=== PATIENT | female | born 1955 | race African-American/Black ===

== ENCOUNTER 2024-12-11 17:37 | Emergency (ER) | payer MEDICARE, MEDICAID, SELFPAY ==
--- NOTE | ~2024-12-11 | CT_ITS ---
History: Headache and neck pain PROCEDURE: CT cervical spine without intravenous contrast. COMPARISON: None TECHNIQUE: Multiple contiguous axial images of the cervical spine were performed without the administration of i ntravenous contrast. DLP: 507 mGy-cm FINDINGS: Straightening and slight reversal of the normal curvature of the cervical spine is identified, likely muscular in origin. No acute fractures are present. The bilateral lung apices are unremarkable. No soft tissue abnormality is present. The airway is unremarkable. Impression: Straightening and slight reversal of the normal curvature of the cervical spine, likely muscular in o rigin. No acute fracture. Reviewed, dictated and finalized at location A. Impression: Straightening and slight reversal of the normal curvature of the cervical spine , likely muscular in origin. No acute fracture.
--- NOTE | ~2024-12-11 | CT_ITS ---
History: Headache and neck pain PROCEDURE: CT head without contrast. COMPARISON: None TECHNIQUE: Axial imaging of the head performed from the skull base to the vertex without IV contrast. Sagittal a nd coronal reformations obtained. DLP: 681 mGy-cm FINDINGS: The ventricles are normal in size, shape and position. There is no mass, mass effect or midline shift. There is no abnormal extra-axial fluid collection or intracranial hemorrhage. Visualized paranasal sinuses are clear. The mastoid air cells are well aerated. No acute displaced fractures within the overlying cranium. Impression: No acute intracranial hemorrhage or suspicious mass effect. Reviewed, dictated and finalized at location A. Impression: No acute intracranial hemorrhage or suspicious mass effect.
--- OUTSIDE RECORDS SUMMARY | 2024-12-11 17:41 | XMS_ITS | Clinical Summary ---
Author Organization [facility] bookjam Address [address] [place] [address] Care Team Providers Care Tie Fastener Name Role Phone [facility] Primary Care Provider Source Comments [facility] Affiliates and Associated Physician Practices is amultiple site organization consisting of ambulatory clinics and hospital sitesin [place], [place], [place] and [place]. This disclosure is being madepursuant to the Care Everywhere program and may not contain all information available regarding this patient. Last updated 18.[facility] Allergies Active Allergy Reactions Criticality Noted Date Comments Clindamycin Swelling Medium 03/11/2019 Tongue swelling Lisinopril Rash Medium 03/11/2019 Medications * Be aware that medications may not be up to date on this document. Alwaysverify current medications with the patient. Medication Sig Dispensed Refills Start Date End Date Status lidocaine (LIDODERM) 5 % patch Apply 1 patch to skin once daily 6 patch 03/14/2019 Active acetaminophen (Tylenol) 325 MG tablet Take 2 (two) tablets by mouth every 4 hours as needed Maximum allowable Acetaminophen amount = 4 Grams (4000 mg) / 24 hours. 06/07/2022 Active albuterol HFA (Proventil; Ventolin; Proair) 108 (90 Base) MCG/ACT inhaler Inhale 2 (two) puffs by mouth every 4 hours as needed for Shortness of Breath or Wheezing 8 g 2 06/07/2022 Active amLODIPine (Norvasc) 10 MG tablet Take 1 (one) tablet by mouth once daily 30 tablet 2 06/08/2022 Active benzonatate (Tessalon) 100 MG capsule Take 1 (one) capsule by mouth 3 times daily as needed for Cough 100 capsule 06/07/2022 Active famotidine (Pepcid) 20 MG tablet Take 1 (one) tablet by mouth once daily 30 tablet 2 06/07/2022 Active pantoprazole EC (Protonix) 20 MG tablet Take 1 (one) tablet by mouth once daily 30 tablet 06/29/2022 Active hydrOXYzine HCl (Atarax) 25 MG tablet Take 1 (one) tablet by mouth 4 times daily as needed (anxiety) 15 tablet 11/29/2022 Active Active Problems Problem Noted Date Diagnosed Date Elevated troponin 06/07/2022 Chest pain 06/07/2022 Syncope 06/07/2022 Fall 02/04/2022 Resolved Problems Problem Noted Date Diagnosed Date Resolved Date Cough 06/07/2022 07/05/2022 Social History Tobacco Use Types Packs/Day Years Used Date Smoking Tobacco: Former Smokeless Tobacco: Never Alcohol Use Standard Drinks/Week Comments No 0 (1 standard drink = 0.6 oz pur e alcohol) AUDIT-C Answer Date Recorded Q1: How often do you have a drink containing alcohol? Never 02/03/2022 Q2: How many drinks containi ng alcohol do you have on a typical day when you are drinking? Patient does not drink Q3: How often do you have si x or more drinks on one occasion? Never 02/03/2022 Sex and Gender Information Value Date Recorded Sex Assigned at Not on file Gender Identity Not on file Sexual Orientation Not on file Last Filed Vital Signs Vital Sign Reading Time Taken Comments Blood Pressure 162/94 02/26/2023 2:12 AM CDT Pulse 54 02/26/2023 2:12 AM CDT Temperature 36.3 C (97.3 F) 02/25/2023 9:06 PM CDT Respiratory Rate 18 02/26/2023 2:12 AM CDT Oxygen Saturation 100% 02/26/2023 2:12 AM CDT Inhaled Oxygen Concentration 21% 06/29/2022 3 :18 AM CDT Weight 116.1 kg (256 lb) 02/25/2023 9:06 PM CDT Height 160 cm (5' 3) 02/25/2023 9:06 PM CDT Body Mass Index 45.35 02/25/2023 9:06 PM CDT Plan of Treatment Health Maintenance Due Date Last Done Comments BONE DENSITY TESTING 1957 COLOGUARD (AGES 45-75) - COL ON CA SCREENING 1957 COLON MONITORING 1957 COLONOSCOPY - COLON CA SCREENING 1957 CT COLONOGRAPHY - COLON CA SCREENING 1957 Colorectal Cancer Screening 1957 FIT - COLON CA SCREENING 1957 FLEX SIG - COLON CA SCREENING 1957 HEPATITIS C SCREENING 11/21/1975 DTAP/TDAP/TD VACCINES (1 - Tdap) 1976 PNEUMOCOCCAL VACCINE 50+ (1 of 1 - PCV) 11/26/2007 ZOSTER VACCINE (1 of 2) 11/26/2007 Respiratory Syncytial Virus (RSV) Vaccine Pt: or over 60 yrs (1 - Risk 60-74 years 1-dose series) 2017 COVID-19 VACCINE (1 - 2023-2 5 season) 2024 INFLUENZA VACCINE (#1) 2024 MAMMOGRAM 06/16/2024 06/16/2022 DEPRESSION SCREENING 09/24/2024 LIPID TESTING 06/07/2027 06/07/2022, 03/02/2020, 04/17/2018 HEPATITIS B VACCINE Aged Out No longe r eligible based on patient's age to complete this topic HIB VACCINE Aged Out No longer eligi ble based on patient's age to complete this topic HPV VACCINE Aged Out No longer eligi ble based on patient's age to complete this topic MENINGOCOCCAL (Group B) VACCINE SHARED DECISION-MAKING Aged Out No longer eligible based on patient's age to complete this topic MENINGOCOCCAL GROUPS A/C/Y/W VACCINE Aged Out No longer eligible b ased on patient's age to complete this topic Procedures Procedure Name Priority Date/Time Associated Diagnosis Comments LIPID PROFILE STAT 06/07/2022 6:06 AM CDT from Last 3 Months or Most Recently Relevant to Health Maintenance Results * LIPID PROFILE (06/07/2022 6:06 AM CDT) Cholesterol Total 143 <200 mg/dL 06/07/2022 6:33 AM [facility] HDL 49 >40 mg/dL 06/07/2022 6:33 AM [facility] Comment: ATP III Classification of HDL Cholesterol: <40 mg/dL: Considered a major risk factor. >60 mg/dL: Considered a negative risk factor. LDL Calculated 81 <100 mg/dL 06/07/2022 6:33 AM [facility] Comment: ATP III Classification of LDL Cholesterol: <100 mg/dL: Optimal 100 - 129 mg/dL: Near Optimal/Above Optimal 130 - 159 mg/dL: Borderline High 160 - 189 mg/dL: High >190 mg/dL: Very High Triglycerides 63 <150 mg/dL 06/07/2022 6:33 AM [facility] Comment: ATP III Classification of Triglycerides: <150 mg/dL: Normal 150 - 199 mg/dL: Borderline High 200 - 400 mg/dL: High >500 mg/dL: Very High Blood BLOOD SPECIMEN / Unknown Venipuncture / Unknown 06/07/2022 6:06 AM CDT 06/07/2022 6:09 AM T Kamari Adames MD LAB - CHEMISTRY KIM CABRERA [facility] Organization Address City/State/ZIP Co de Phone Number [facility] [address] [place] [address], [facility] [phone] from Last 3 Months or Most Recently Relevant to Health Maintenance Advance Directives * Full Code (Latest Code Status on File) Date Activated Date Inactivated Comments 06/07/2022 5:41 AM 06/07/2022 6:41 PM Care Teams Tie Fastener Relationship Specialty Start Date End Date [facility] [address] [place] [id number] PCP - General 03/11/19
--- OUTSIDE RECORDS SUMMARY | 2024-12-11 17:41 | XMS_ITS | CONTINUITY OF CARE DOCUMENT ---
Author Name ankita luciano Address Unknown Organization [facility] Address [id number] [place] [address] [address] [place] [address] Phone [phone] Care Team Providers Care Student Outreach Coordinator Name Role Phone Donato Doherty MD Unavailable [phone] Donato Doherty MD Unavailable INSURANCE PROVIDERS Payer name Policy type / Coverage type [place] red republican ID [facility] MEDICA[facility] (2) Medicaid [id number]
[2024-12-11 18:34] VITALS: BP 143/75; PULSE 67; RESP 16; O2SAT 100
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
[2024-12-11] MEDS: KETOROLAC 30 MG/ML VIAL (*BKC) IV PUSH (22:48)
[2024-12-11] MEDS: predniSONE 20 MG TABLET 40 MG PO (23:04)
--- OUTSIDE RECORDS SUMMARY | 2024-12-11 23:57 | XMS_ITS | CONTINUITY OF CARE DOCUMENT ---
Author Name ankita luciano Address Unknown Organization [facility] Address [address] [place] [address] [address] [place] [address] Phone [phone] Care Team Providers Care Inspector Conveyor Line Name Role Phone Donato Doherty MD Unavailable [phone] Donato Doherty MD Unavailable INSURANCE PROVIDERS Payer name Policy type / Coverage type [place] red green party ID [facility] MEDICAID (2) Medicaid [id number]
--- OUTSIDE RECORDS SUMMARY | 2024-12-11 23:57 | XMS_ITS | Encounter Summary ---
Author Organization [facility] Address [address] [place] [address] Phone Care Team Providers Care Integrity Manager Name Role Phone Deepa Bowden NP Primary Care Provider [phone] Deepa Bowden NP Primary Care Provider [phone] Deepa Bowden SALES ACCOUNT DIRECTOR Unavailable [phone] Perry Monzon MD Unavailable [phone] Encounter Details Date Type Department Care Team (Latest Contact Info) Description 03/20/2023 Orders Only [facility] Scanning, Provider Social History Tobacco Use Types Packs/Day Years Used Date Smoking Tobacco: Former Cigarettes 0.2 15 1 4 - 1988 Smokeless Tobacco: Never AUDIT-C Answer Date Recorded Q1: How often do you have a drink containing alcohol? Never 11/07/2022 Q2: How many drinks containi ng alcohol do you have on a typical day when you are drinking? Patient does not drink Q3: How often do you have si x or more drinks on one occasion? Never 11/07/2022 Comments No Sex and Gender Information Value Date Recorded Sex Assigned at Not on file Legal Sex Female 1:14 AM FIELD LIABILITY GENERALIST Gender Identity Female 12/11/2023 8:39 PM CDT Sexual Orientation Not on file documented as of this encounter Plan of Treatment Not on file documented as of this encounter Procedures Procedure Name Priority Date/Time Associated Diagnosis Comments PULMONARY - RESULT SCAN 03/20/2023 documented in this encounter Results * PULMONARY - RESULT SCAN (03/20/2023) Anatomical Region Laterality Modality Other us Provider Scanning Final Result documented in this encounter Visit Diagnoses Not on filedocumented in this encounter Additional Health Concerns Infection Onset Date Last Indicated Resolved Time COVID: Recovered 03/20/2023 03/20/2023 06/18/2023 3:05 AM CDT COVID: Suspected 03/20/2023 03/20/2023 03/20/2023 11:11 PM CDT COVID: Suspected 03/20/2023 03/20/2023 03/21/2023 12:21 AM CDT COVID: Suspected 07/22/2023 07/22/2023 07/22/2023 11:24 AM CDT COVID: Suspected 09/25/2023 09/25/2023 09/25/2023 5:29 PM FIELD LIABILITY GENERALIST COVID: Suspected 11/08/2023 11/08/2023 11/08/2023 11:21 AM FIELD LIABILITY GENERALIST COVID: Suspected 12/11/2023 12/11/2023 12/11/2023 9:22 PM CDT COVID: Suspected 12/26/2023 12/26/2023 12/26/2023 6:35 PM CDT COVID: Suspected 01/12/2024 01/12/2024 01/12/2024 11:32 PM CDT COVID: Suspected 01/19/2024 01/19/2024 01/19/2024 4:11 PM CDT COVID: Suspected 06/14/2024 06/14/2024 06/14/2024 4:07 PM CDT COVID: Suspected 06/30/2024 06/30/2024 06/30/2024 3:37 PM CDT documented as of this encounter Care Teams Integrity Manager Relationship Specialty Start Date End Date Deepa Bowden NP PCP - General 05/07/20 12/10/23 Deepa Bowden NP PCP - General Nurse Practitioner 12/11/23 Deepa Bowden NP 12/11/23 Perry Monzon MD [address] [place] [address] [place] [address] Consulting Physician Pulmonary Disease 11/12/23 documented as of this encounter
--- OUTSIDE RECORDS SUMMARY | 2024-12-11 23:57 | XMS_ITS | Encounter Summary ---
Author Organization [facility] Address [address] [place] [address] Care Team Providers Care Roll Grinder Name Role Phone PatiDeepa ruelas DAWIT Primary Care Provider [phone] Encounter Details Date Type Department Care Team (Late st Contact Info) Description 03/03/2020 Hospital Follow-up Call [facility] [place] [address] Rosalva Lopez RN Social History Tobacco Use Types Packs/Day Years Used Date Smoking Tobacco: Former Cigarettes Q uit: 1988 Smokeless Tobacco: Never Alcohol Use Standard Drinks/Week Comments No 0 (1 standard drink = 0.6 oz pur e alcohol) Comments No Sex and Gender Information Value Date Recorded Sex Assigned at Not on file Legal Sex Female 10:12 PM CDT Gender Identity Not on file Sexual Orientation Not on file COVID-19 Exposure Response Date Recorded In the last month, have you been in contact with someone who was confirmed or suspected to have Coronavirus / COVID-19? No / Unsure 03/01/2020 10:17 PM CDT documented as of this encounter Functional Status * RETIRED Are you deaf or do you have serious difficulty hearing Answer Date of Assessment Author Status No 03/02/2020 12:47 PM CDT Acti ve * RETIRED Are you blind or do you have serious difficulty seeing, even when wearing glasses? Answer Date of Assessment Author Status No 03/02/2020 12:47 PM CDT Acti ve * Do you have serious difficulty walking or climbing stairs? Answer Date of Assessment Author Status Yes 03/02/2020 12:47 PM SULTANAT Naima Kunz RN Active * Do you have difficulty dressing or bathing? Answer Date of Assessment Author Status No 03/02/2020 12:47 PM Naima Ramsey RN Active * Because of a physical, mental, or emotional condition, do you have difficulty doing errands alone such as visiting a doctor's office or shopping? Answer Date of Assessment Author Status No 03/02/2020 12:47 PM Naima Ramsey RN Active documented as of this encounter Mental Status * Because of a physical, mental, or emotional condition, do you have serious difficulty concentrating, remembering, or making decisions? Answer Entry Date Author Status No 03/02/2020 12:47 PM Naima Ramsey RN Active documented in this encounter Plan of Treatment Not on file documented as of this encounter Visit Diagnoses Not on filedocumented in this encounter Additional Health Concerns Infection Onset Date Last Indicated Resolved Time COVID-19 Rule Out 02/04/2022 02/04/2022 02/04/2022 8:04 PM CDT COVID-19 Rule Out 04/06/2022 04/06/2022 04/06/2022 8:25 PM CDT COVID-19 Rule Out 05/15/2022 05/15/2022 05/15/2022 9:23 PM CDT COVID-19 Rule Out 06/01/2022 06/01/2022 06/01/2022 6:00 PM CDT COVID-19 Rule Out 02/18/2023 02/18/2023 02/18/2023 10:44 AM CDT COVID-19 Rule Out 03/05/2023 03/05/2023 03/05/2023 1:28 PM CDT COVID-19 Rule Out 03/06/2023 03/06/2023 03/06/2023 12:59 AM CDT COVID-19 Confirmed 03/06/2023 03/06/2023 12:32 AM CDT COVID-19 Rule Out 05/30/2024 05/30/2024 05/30/2024 12:15 PM CDT documented as of this encounter Care Teams Roll Grinder Relationship Specialty Start Date End Date Deepa Bowden NP [address] [place] [phone] PCP - General Nurse Practitioner Family 05/14/19 documented as of this encounter
--- OUTSIDE RECORDS SUMMARY | 2024-12-11 23:57 | XMS_ITS | Referral Summary ---
Author Organization [facility] Address [address] [place] [address] Care Team Providers Care Supervisor Polishing Name Role Phone Deepa Bowden NP Primary Care Provider [phone] Deepa Bowden NP Unavailable [phone] Perry Monzon MD Unavailable [phone] Encounters Date Type Department Care Team Description 11/28/2024 Telephone [facility] ([facility]) - [facility] ENT [address] [place] [address] [address] [place] [address] [place] [address] Irma Wan, 11/24/2024 11:00 AM PERSONNEL RECORDS CLERK Office Visit [facility] Pulmonology [address] [place] [address] [address] [place] [phone] Perry Monzon MD CHARITY (obstructive sleep apnea) (Primary Dx); Cigarette nicotine dependence in remission; Non-seasonal allergic rhinitis due to fungal spores; Disorder of vocal cord; Dyspnea on exertion 11/03/2024 Telephone [facility] Pulmonology [address] [place] [address] [address] [place] [phone] Perry Monzon MD 10/08/2024 9:40 AM PERSONNEL RECORDS CLERK Therapy [facility] Otolaryngology [address] [place] [address] [address]th [place] [address] [place] [address] Nicole Mccullough, DESTINY 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] 09/25/2024 2:30 PM PERSONNEL RECORDS CLERK Office Visit [facility] Pulmonology [address] [facility] [address] [place] [address] Elaine Forbes MD CHARITY (obstructive sleep apnea) (Primary Dx); Psychophysiological insomnia; Cigarette nicotine dependence in remission; Periodic limb movement; Non-seasonal allergic rhinitis due to fungal spores; BMI 50.0-59.9, adult (HCC) from Last 3 Months Allergies Active Allergy Reactions Criticality Noted Date Comments Clindamycin Lisinopril Cough Low 01/05/2023 Medications amLODIPine (NORVASC) 10 mg tablet Take 1 tablet (10 mg total) by mouth daily 04/09/20 18 Active losartan (COZAAR) 100 mg tablet Take 1 tablet (100 mg total) by mouth daily 06/19/20 22 Active hydroCHLOROthi azide (HYDRODIURIL) 12.5 mg tablet Take 1 tablet (12.5 mg total) by mouth daily 12/04/19 24 Active albuterol HFA (PROVENTIL HFA,VENTOLIN HFA,PROAIR HFA) 90 mcg/actuation inhaler Inhale 2 puffs every 4 (four) hours as needed for wheezing or shortness of breath Active fluticasone propionate (FLONASE) 50 mcg/actuation nasal spray Administer 1 spray into each nostril daily Active busPIRone (BUSPAR) 7.5 mg tabletIndicati ons:Generalize d Anxiety Disorder Take 1 tablet (7.5 mg total) by mouth 2 (two) times a day 60 tablet 11 06/17/20 24 025 Active fluticasone propion-salmet Jose Alejandro (ADVAIR DISKUS) 250-50 mcg/dose diskus inhaler Inhale 1 puff 2 (two) times a day Rinse mouth with water after use. Do not swallow. 025 Discontinued predniSONE (DELTASONE) 20 mg tablet Take 2 tablets (40 mg) by mouth daily 09/21/20 025 Discontinued Active Problems Problem Noted Date Diagnosed Date SOB (shortness of breath) 07/01/2024 Hypokalemia 06/30/2024 Anxiety 06/30/2024 Periodic limb movement 06/23/2024 Muscle tension dysphonia 06/15/2024 COPD exacerbation 12/26/2023 Psychophysiological insomnia 11/30/2023 CHARITY (obstructive sleep apnea) 11/30/2023 Snoring 11/30/2023 Cigarette nicotine dependence in remission 11/29 BMI 60.0-69.9, adult 11/30/2023 Uncontrolled hypertension 09/26/2023 Dyspnea on exertion 09/25/2023 Hypertension, essential 03/21/2023 Assessment & Plan (03/21/2023 4:18 PM CDT): Home regimen amlodipine 10, losartan 100 mg. Neither calcium channel blockers nor arms are classic for airway reaction, but consider modification of regimen if no other etiology can be found. -Continue home meds BMI 50.0-59.9, adult 03/21/2023 Assessment & Plan (03/21/2023 2:49 AM CDT): BMI 45 on admission. Anemia 03/21/2023 Assessment & Plan (03/21/2023 2:50 AM CDT): Admission hemoglobin 11.4 from previous normal, but no overt signs of bleeding. Suspect iatrogenic phlebotomy. Consider workup if persistent. Prediabetes 03/21/2023 Assessment & Plan (03/21/2023 4:16 PM CDT): A1C 05/2022 5.8%. Shortness of breath 03/20/2023 Assessment & Plan (03/21/2023 4:18 PM CDT): Sent to ED from allergy clinic. Unclear if reactive airway disease (asthma, but no PFTs), vocal cord dysfunction, tracheobronchomalacia, vascular, other (?autoimmune). S/p steroids, nebs in ED. Multiple ED visits for such. Prior CTPE negative for overt airway disease. Presently, low concern for primary cardiac or lung parenchyma problem. Higher concern for tracheal pathology or reactive airway disease. - ENT consult, s/p scope, appreciate recs Outpatient follow up for hoarseness - Start Zyrtec - Referral to Pulm for possible tracheomalacia. PFTs ordered as outpt - Home today Non-seasonal allergic rhinitis due to fungal spo res 11/07/2022 Non-seasonal allergic rhinitis due to pollen Assessment & Plan (03/21/2023 2:48 AM CDT): - Cont home Flonase, Astelin, Singular - start Zrytec 10mg daily for concern for allergic contribution Asthma 11/07/2022 Postinflammatory hyperpigmentation 08/28/2016 Nontraumatic complete tear of right rotator cuff 07/30/2015 Immunizations Immunization Administration Dates Next Due Tdap 04/28/2016 Social History Tobacco Use Types Packs/Day Years Used Date Smoking Tobacco: Former Cigarettes 0.1 15 1 974 - 1988 Smokeless Tobacco: Never Tobacco Cessation:Counseling Given: Not Answered [facility] Utilities Answer Date Recorded In the past 12 months has [employer], gas, oil, or water [employer] threatened to shut off services in your home? No 07/01/2024 Social Connection and Isolat ion Panel [NHANES] Answer Date Recorded In a typical week, how many times do you talk on the phone with family, friends, or neighbors? More than three times a week 07/01/2024 How often do you get togethe r with friends or relatives? More than three times a week 07/01/2024 How often do you attend chur ch or tenriism services? Never 07/01/2024 Do you belong to any clubs o r organizations such as denominational groups, unions, fraternal or athletic groups, or school groups? No 07/01/2024 How often do you attend meet ings of the clubs or organizations you belong to? Never 07/01/2024 Are you , , di vorced, , never , or living with a partner? 07/01/2024 AUDIT-C Answer Date Recorded Q1: How often do you have a drink containing alcohol? Never 11/08/2023 Q2: How many drinks containi ng alcohol do you have on a typical day when you are drinking? Patient does not drink Q3: How often do you have si x or more drinks on one occasion? Never 11/08/2023 Overall Financial Resource Strain (CARDIA) Answe r Date Recorded How hard is it for you to pa y for the very basics like food, housing, medical care, and heating? Not hard at all 07/01/2024 PHQ-2 Answer Date Recorded PHQ-2 Total Score 0 07/01/2024 Hunger Vital Sign Answer Date Recorded Within the past 12 months, y ou worried that your food would run out before you got the money to buy more. Never true 07/01/20 24 Within the past 12 months, t he food you bought just didn't last and you didn't have money to get more. Never true 07/01/2024 PRAPARE - Transportation Answer Date Re corded In the past 12 months, has l ack of transportation kept you from medical appointments or from getting medications? No 04/2024 In the past 12 months, has l ack of transportation kept you from meetings, work, or from getting things needed for daily living? No 07/01/2024 Housing Stability Vital Sign Answer Deuce e Recorded In the last 12 months, was t here a time when you were not able to pay the mortgage or rent on time? No 12/27/2023 In the last 12 months, how many places have you lived? 1 12/27/2023 In the last 12 months, was t here a time when you did not have a steady place to sleep or slept in a intermediate (including now)? No 12/27/2023 PHQ-9 Answer Date Recorded PHQ-9 Total Score 0 07/01/2024 Housing Stability Vital Sign Answer Deuce e Recorded In the last 12 months, was t here a time when you were not able to pay the mortgage or rent on time? No 07/01/2024 In the past 12 months, how m any times have you moved where you were living? 1 07/01/2024 At any time in the past 12 m [facility], were you homeless or living in a intermediate (including now)? No 07/01/2024 Personal Safety Answer Date Recorded Have you ever been in or are you currently in a harmful physical or emotional relationship or is someone making you feel afraid or unsafe? Denies 06/30/2024 Comments No Sex and Gender Information Value Date Recorded Sex Assigned at Not on file Legal Sex Female 1:14 AM PERSONNEL RECORDS CLERK Gender Identity Female 12/11/2023 8:39 PM CDT Sexual Orientation Not on file Last Filed Vital Signs Vital Sign Reading Time Taken Comments Blood Pressure 149/80 11/24/2024 11:31 AM PERSONNEL RECORDS CLERK Pulse 68 11/24/2024 11:31 AM PERSONNEL RECORDS CLERK Temperature 36.7 C (98.1 F) 11/24/2024 11:31 AM PERSONNEL RECORDS CLERK Respiratory Rate 18 11/24/2024 11:31 AM PERSONNEL RECORDS CLERK Oxygen Saturation 96% 11/24/2024 11:31 AM PERSONNEL RECORDS CLERK Inhaled Oxygen Concentration - - Weight 130.6 kg (288 lb) 11/24/2024 11:31 AM PERSONNEL RECORDS CLERK Height 160 cm (5' 3) 11/24/2024 11:31 AM PERSONNEL RECORDS CLERK Body Mass Index 51.02 11/24/2024 11:31 AM PERSONNEL RECORDS CLERK Plan of Treatment Not on file Procedures Procedure Name Priority Date/Time Associated Diagnosis Comments SCREENING MAMMOGRAM BILATERAL W [place] Schedule Routine, Read Routine (OP Routine) 06/16/2022 1:56 PM CDT Screening mammogram, encounter for from Last 3 Months or Most Recently Relevant to Health Maintenance Results * (ABNORMAL) Screening Mammogram Bilateral W [place] (06/16/2022 1:56 PM CDT) Anatomical Region Laterality Modality Breast Bilateral Mammography Impressions 06/16/2022 3:12 PM CDT BI-RADS ATLAS category (overall): 0 - Incomplete: Needs Additional Imaging Evaluation 1. Indeterminate 1.8 cm mass in the axillary tail of the left breast. Further evaluation with diagnostic left breast ultrasound is recommended. 2. No mammographic evidence of malignancy in the right breast. Routine screening mammography of the right breast is recommended in 1 year. The patient has been or will be contacted. Narrative 06/16/2022 3:12 PM CDT Screening Mammogram Bilateral W [place]: 06/16/22 The study was acquired using full field digital technology and interpreted from soft copy. 2D digital mammographic views, as well as 3D digital tomosynthesis were performed in the CC and MLO projections. CLINICAL: Screening mammogram, encounter for. No relevant medical history has been documented for this patient. No known family history of breast cancer. COMPARISON: Baseline Screening Mammography. No prior mammography is available for comparison. BREAST TISSUE: The breasts have scattered areas of fibroglandular density. FINDINGS: There is a 1.8 cm oval circumscribed mass in the axillary tail of the left breast, approximately 22 cm from the nipple. No other suspicious findings are seen within either breast. us Self Screening Mammogram IMG MAMMO PROCEDURES Fi nal Result from Last 3 Months or Most Recently Relevant to Health Maintenance Insurance [facility] Advance Directives For more information, please contact: [phone] * Full Code (Latest Code Status on File) Date Activated Date Inactivated Comments 06/30/2024 8:00 PM 07/02/2024 6:04 PM * Full Code Date Activated Date Inactivated Comments 06/14/2024 11:25 PM 06/17/2024 9:14 PM * Full Code Date Activated Date Inactivated Comments 12/27/2023 8:13 AM 12/28/2023 7:03 PM * Full Code Date Activated Date Inactivated Comments 11/08/2023 3:51 PM 11/12/2023 6:47 PM * Full Code Date Activated Date Inactivated Comments 09/25/2023 10:03 PM 09/27/2023 9:55 PM Care Teams Supervisor Polishing Relationship Specialty Start Date End Date Deepa Bowden NP PCP - General Nurse Practitioner 12/11/23 Deepa Bowden NP 12/11/23 Perry Monzon MD [address] [facility] [address] [address] Consulting Physician Pulmonary Disease 11/12/23
--- OUTSIDE RECORDS SUMMARY | 2024-12-11 23:57 | XMS_ITS | Encounter Summary ---
Author Organization [facility] Address [address] [place] [id number] Care Team Providers Care Hand Cloth Cutter Name Role Phone PatiDeepa ruelas DAWIT Primary Care Provider [phone] Encounter Details Date Type Department Care Team (Late st Contact Info) Description 03/05/2020 Hospital Follow-up Call [facility] Telemetry [place] [address] Rosalva Lopez RN Social History Tobacco Use [...] documented as of this encounter Care Teams Hand Cloth Cutter Relationship Specialty Start Date End Date Deepa Bowden NP [address] [place] [phone] PCP - General Nurse Practitioner Family 05/14/19 documented as of this encounter
--- OUTSIDE RECORDS SUMMARY | 2024-12-11 23:57 | XMS_ITS | Clinical Summary ---
Author Organization [facility] Address [address] [facility] [place] [address] Care Team Providers Care Cosmetology Professor Name Role Phone [facility] Primary Care Provider Source Comments [facility] Affiliates and Associated Physician Practices is amultiple site organization consisting of ambulatory clinics and hospital sitesin [place], [place] and [place]. This disclosure is being madepursuant to the Care Everywhere program and may not contain all information available regarding this patient. Last updated 18.[facility] Allergies Active Allergy Reactions Criticality Noted Date [...] Total 143 <200 mg/dL 06/07/2022 6:33 AM [facility] HDL 49 >40 mg/dL 06/07/2022 6:33 AM [facility] Comment: ATP III Classification of HDL Cholesterol: <40 mg/dL: Considered a major risk factor. >60 mg/dL: Considered a negative risk factor. LDL Calculated 81 <100 mg/dL 06/07/2022 6:33 AM [facility] Comment: ATP III Classification of LDL Cholesterol: <100 mg/dL: Optimal 100 - 129 mg/dL: Near Optimal/Above Optimal 130 - 159 mg/dL: Borderline High 160 - 189 mg/dL: High >190 mg/dL: Very High Triglycerides 63 <150 mg/dL 06/07/2022 6:33 AM [facility] Comment: ATP III Classification of Triglycerides: <150 mg/dL: Normal 150 - 199 mg/dL: Borderline High 200 - 400 mg/dL: High >500 mg/dL: Very High Blood BLOOD SPECIMEN / Unknown Venipuncture / Unknown 06/07/2022 6:06 AM CDT 06/07/2022 6:09 AM T Kamari Adames MD LAB - CHEMISTRY KIM CABRERA [facility] Organization Address City/State/ZIP Co de Phone Number [facility] [address] [place] [address], [facility] [phone] from Last 3 Months or Most Recently Relevant to Health Maintenance Advance Directives * Full Code (Latest Code Status on File) Date Activated Date Inactivated Comments 06/07/2022 5:41 AM 06/07/2022 6:41 PM Care Teams Cosmetology Professor Relationship Specialty Start Date End Date [facility] [address] [place] [id number] PCP - General 03/11/19
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
--- OUTSIDE RECORDS SUMMARY | 2024-12-11 23:57 | XMS_ITS | Encounter Summary ---
Author Organization [facility] Address [address] [place] [address] Care Team Providers Care Accounts Receivable Accountant Name Role Phone Deepa Bowden NP Primary Care Provider [phone] Deepa Bowden NP Primary Care Provider [phone] Deepa Bowden RETAIL ASSOCIATE MANAGER BILINGUAL Unavailable [phone] Perry Monzon MD Unavailable [phone] Encounter Details Date Type Department Care Team (Late st Contact Info) Description 10/01/2023 TCC Initial Eligibility Review [facility] [address] [place] [address] Jo Rowe RN Social History Tobacco Use Types Packs/Day Years Used Date Smoking Tobacco: Former Cigarettes 0.2 15 1 974 - 1988 Smokeless Tobacco: Never [facility] Utilities Answer Date Recorded In the past 12 months has [employer], gas, oil, or water company threatened to shut off services in your home? Patient declined 09/26/2023 Social Connection and Isolat ion Panel [NHANES] Answer Date Recorded In a typical week, how many times do you talk on the phone with family, friends, or neighbors? More than three times a week 09/26/2023 How often do you get togethe r with friends or relatives? More than three times a week 09/26/2023 How often do you attend chur ch or orthodoxy services? Never 09/26/2023 Do you belong to any clubs o r organizations such as lutheran groups, unions, fraternal or athletic groups, or school groups? No 09/26/2023 How often do you attend meet ings of the clubs or organizations you belong to? Never 09/26/2023 Are you , , di vorced, , never , or living with a partner? Patient declined 09/26/2023 AUDIT-C Answer Date Recorded Q1: How often do you have a drink containing alcohol? Never 11/07/2022 Q2: How many drinks containi ng alcohol do you have on a typical day when you are drinking? Patient does not drink Q3: How often do you have si x or more drinks on one occasion? Never 11/07/2022 Overall Financial Resource Strain (CARDIA) Answe r Date Recorded How hard is it for you to pa y for the very basics like food, housing, medical care, and heating? Not very hard 09/26/2023 Hunger Vital Sign Answer Date Recorded Within the past 12 months, y ou worried that your food would run out before you got the money to buy more. Never true 09/26/19 24 Within the past 12 months, t he food you bought just didn't last and you didn't have money to get more. Never true 09/26/2023 PRAPARE - Transportation Answer Date Re corded In the past 12 months, has l ack of transportation kept you from medical appointments or from getting medications? No 11/2023 In the past 12 months, has l ack of transportation kept you from meetings, work, or from getting things needed for daily living? No 09/26/2023 Housing Stability Vital Sign Answer Deuce e Recorded In the last 12 months, was t here a time when you were not able to pay the mortgage or rent on time? No 09/26/2023 In the last 12 months, how many places have you lived? 1 09/26/2023 In the last 12 months, was t here a time when you did not have a steady place to sleep or slept in a care home (including now)? No 09/26/2023 Personal Safety Answer Date Recorded Getting School Help Needed Denies 09/15 Comments No Sex and Gender Information Value Date Recorded Sex Assigned at Not on file Legal Sex Female 1:14 AM WELDER APPRENTICE GAS Gender Identity Female 12/11/2023 8:39 PM CDT Sexual Orientation Not on file documented as of this encounter Plan of Treatment Not on file documented as of this encounter Visit Diagnoses Not on filedocumented in this encounter Additional Health Concerns Infection Onset Date Last Indicated Resolved Time COVID: Suspected 11/08/2023 11/08/2023 11/08/2023 11:21 AM WELDER APPRENTICE GAS COVID: Suspected 12/11/2023 12/11/2023 12/11/2023 9:22 PM CDT COVID: Suspected 12/26/2023 12/26/2023 12/26/2023 6:35 PM CDT COVID: Suspected 01/12/2024 01/12/2024 01/12/2024 11:32 PM CDT COVID: Suspected 01/19/2024 01/19/2024 01/19/2024 4:11 PM CDT COVID: Suspected 06/14/2024 06/14/2024 06/14/2024 4:07 PM CDT COVID: Suspected 06/30/2024 06/30/2024 06/30/2024 3:37 PM CDT documented as of this encounter Care Teams Accounts Receivable Accountant Relationship Specialty Start Date End Date Deepa Bowden NP PCP - General 05/07/20 12/10/23 Deepa Bowden NP PCP - General Nurse Practitioner 12/11/23 Deepa Bowden NP 12/11/23 Perry Monzon MD [address] [address] Consulting Physician Pulmonary Disease 11/12/23 documented as of this encounter
--- OUTSIDE RECORDS SUMMARY | 2024-12-11 23:57 | XMS_ITS | Clinical Summary ---
Author Organization [facility] Address [address] [place] [address] Care Team Providers Care Chute Feeder Name Role Phone Deepa Bowden NP Primary Care Provider [phone] Deepa Bowden NP Unavailable [phone] Perry Monzon MD Unavailable [phone] Allergies Active Allergy Reactions Criticality Noted Date [...] tablets (40 mg) by mouth daily 09/21/20 24 025 Discontinued Active Problems Problem Noted Date [...] complete tear of right rotator cuff 07/30/2015 Encounters Date Type Department Care Team Description 11/28/2024 Telephone [facility] - [facility] ENT [address] [place] [address] [address]th [place] [address] [place] [address] Irma Wan, 11/24/2024 11:00 AM SWEET PICKLE MAKER Office Visit [facility] Pulmonology [address] [place] [address] [address] [place] [address] Perry Monzon MD CHARITY (obstructive sleep apnea) (Primary Dx); Cigarette nicotine dependence in remission; Non-seasonal allergic rhinitis due to fungal spores; Disorder of vocal cord; Dyspnea on exertion 11/03/2024 Telephone [facility] Pulmonology [facility] [address] [place] [address] Perry Monzon MD 10/08/2024 9:40 AM SWEET PICKLE MAKER Therapy [facility] Otolaryngology [address] [facility] [address]th [place] [address] [place] [address] Nicole Mccullough, DESTINY 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); Hoarseness 10/08/2024 9:40 AM SWEET PICKLE MAKER Office Visit [facility]) - [facility] ENT [address] [facility] [address]th [place] [address] [place] [address] Ulysses Abreu MD Esophageal dysphagia (Primary Dx); Hoarseness; 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] 09/25/2024 2:30 PM SWEET PICKLE MAKER Office Visit [facility] Pulmonology [address] [address] Elaine Forbes MD CHARITY (obstructive sleep apnea) (Primary Dx); Psychophysiological insomnia; Cigarette nicotine dependence in remission; Periodic limb movement; Non-seasonal allergic rhinitis due to fungal spores; BMI 50.0-59.9, adult (HCC) from Last 3 Months Immunizations Immunization Administration Dates Next Due Tdap 04/28/2016 Surgical History Surgery Date Site/Laterality Comments HYSTERECTOMY HYSTERECTOMY TOTAL SHOULDER REPLACEMENT Medical History Medical History Date Comments Chest pain Shortness of breath Obesity Ex-smoker COPD (chronic obstructive pulmonary disease) (HC C) Asthma Family History Medical History Relation Name Comments Hypertension Brother Family history of hypertension - (Added by TW Conv) Hypertension Mother Family history of hypertension - (Added by TW Conv) Hypertension Sister Family history of hypertension - (Added by TW Conv) Relation Name Status Comments Brother Mother Sister Social History Tobacco Use Types Packs/Day Years Used Date Smoking Tobacco: Former Cigarettes 0.1 15 1 974 - 1988 Smokeless Tobacco: Never Tobacco Cessation:Counseling Given: Not Answered [facility] Utilities Answer Date Recorded In the past 12 months has [employer], gas, oil, or water company threatened to [...] often do you attend chur ch or cheondoism services? Never 07/01/2024 Do you belong to any clubs o r organizations such as taoist groups, unions, fraternal or athletic groups, or [...] in a care home (including now)? No 12/27/2023 PHQ-9 Answer Date [...] any time in the past 12 m [facility], were you homeless or living in a care home (including now)? No 07/01/2024 Personal Safety Answer Date Recorded Have you ever been in or are you currently in a harmful physical or emotional relationship or is someone making you feel afraid or unsafe? Denies 06/30/2024 Comments No Sex and Gender Information Value Date Recorded Sex Assigned at Not on file Legal Sex Female 1:14 AM SWEET PICKLE MAKER Gender Identity Female 12/11/2023 8:39 PM CDT Sexual Orientation Not on file Obstetrics History Para Term AB IAB SAB Ectopic Multiple Livin g Live Births 5 5 5 Date Outcome GA Total Labor Labor/2nd/3rd Weight Sex Type Anes PTL Joseline A1 A5 Name Clin Term Term Term Term Term Last Filed Vital Signs Vital Sign Reading Time Taken Comments Blood Pressure 149/80 11/24/2024 11:31 AM SWEET PICKLE MAKER Pulse 68 11/24/2024 11:31 AM SWEET PICKLE MAKER Temperature 36.7 C (98.1 F) 11/24/2024 11:31 AM SWEET PICKLE MAKER Respiratory Rate 18 11/24/2024 11:31 AM SWEET PICKLE MAKER Oxygen Saturation 96% 11/24/2024 11:31 AM SWEET PICKLE MAKER Inhaled Oxygen Concentration - - Weight 130.6 kg (288 lb) 11/24/2024 11:31 AM SWEET PICKLE MAKER Height 160 cm (5' 3) 11/24/2024 11:31 AM SWEET PICKLE MAKER Body Mass Index 51.02 11/24/2024 11:31 AM SWEET PICKLE MAKER Plan of Treatment Health Maintenance Due Date Last Done Comments Colon Cancer Screening-Colonoscopy 1955 Hepatitis C Screening 1955 Osteoporosis Screening-Bone Density Scan 1955 Hepatitis B Screening 11/26/1975 Pneumococcal vaccine 65+ (1 of 2 - PCV) 1976 Zoster Vaccine (1 of 2) 11/26/2007 Well Visit 65+ 2022 Breast Cancer Screening-Mammogram 06/16/2023 022, 06/16/2022 Influenza Vaccine (#1) 2024 Depression Screening 06/30/2025 06/30/2024, 06/30/2024, 06/14/2024 Fall Risk Assessment 07/02/2025 07/02/2024 DTaP/Tdap/Td Vaccine (2 - Td or Tdap) 04/28/202601/2016 Procedures Procedure Name Priority Date/Time Associated Diagnosis [...] Most Recently Relevant to Health Maintenance Insurance Member Subscriber Plan / Payer (Ef fective 2020-Present) Name:Rayna Qureshi Relation to Subscriber:Self Name:Rayna Qureshi Payer ID:[id number] (NAIC) Group ID:Not on file Type:MEDICAID RISK OTHER Address[address] [address] [place], [place] [id number] [place] [address] Advance Directives For more information, please contact: [phone] * Full Code (Latest Code Status on [...] 10:03 PM 09/27/2023 9:55 PM Care Teams Chute Feeder Relationship Specialty Start Date End Date Deepa Bowden NP PCP - General Nurse Practitioner 12/11/23 Deepa Bowden NP 12/11/23 Perry Monzon MD [address] [facility] [place] [address] Consulting Physician Pulmonary Disease 11/12/23
[2024-12-12 00:07] VITALS: BP 142/78; PULSE 65; RESP 16; O2SAT 98
== END 2024-12-12 00:08 | disposition home or self-care (01) ==
PROVIDERS: Emergency Provider Registered Nurse; PCP Nurse Practitioner Family
DX: S16.1XXA Strain of muscle, fascia and tendon at neck level, initial encounter (principal); S13.4XXA Sprain of ligaments of cervical spine, initial encounter; X58.XXXA Exposure to other specified factors, initial encounter
CPT/HCPCS: 70450; 72125; 96374; 99284; J1885; J7512

== ENCOUNTER 2024-12-15 14:48 | Emergency (ER) | payer MEDICARE, MEDICAID, SELFPAY ==
[2024-12-15 14:51] VITALS: BP 160/83; PULSE 73; RESP 18; TEMP 36.4; O2SAT 100
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
--- NOTE | 2024-12-15 16:10 | PC.NURSE ---
Pt states was treated at this ER 2 days ago for neck pain. CT negative remains sore. Has not followed up with PMD
--- OUTSIDE RECORDS SUMMARY | 2024-12-15 17:09 | XMS_ITS | CONTINUITY OF CARE DOCUMENT ---
Author Name ankita luciano Address Unknown Organization [facility] Address [address] [place] [address] Phone [phone] Care Team Providers Care Sheetmetal Worker Name Role Phone Donato Doherty MD Unavailable [phone] Donato Doherty MD Unavailable [phone] INSURANCE PROVIDERS Payer name Policy type / Coverage type [place] [employer] party ID [facility] (2) Medicaid [id number]
--- OUTSIDE RECORDS SUMMARY | 2024-12-15 17:09 | XMS_ITS | Encounter Summary ---
Author Organization [facility] Address [address] [place] [address] Care Team Providers Care Seismograph Chief Name Role Phone PatiDeepa ruelas DAWIT Primary Care Provider [phone] Encounter Details Date Type Department Care Team (Late st Contact Info) Description 03/03/2020 Hospital Follow-up Call [facility] [place] [address] Rosalva Lopez RN Social History Tobacco Use [...] documented as of this encounter Care Teams Seismograph Chief Relationship Specialty Start Date End Date Deepa Bowden NP [address] [place] [phone] PCP - General Nurse Practitioner Family 05/14/19 documented as of this encounter
--- OUTSIDE RECORDS SUMMARY | 2024-12-15 17:09 | XMS_ITS | Clinical Summary ---
Author Organization [facility] Address [address] [place] [address] Care Team Providers Care Bottle Caser Name Role Phone [facility] Primary Care Provider Source Comments [facility],non-[facility] Affiliates and Associated Physician Practices is amultiple site organization consisting of ambulatory clinics and hospital sitesin [place], [place], [place] and [place]. This disclosure is being madepursuant to the Care Everywhere program and may not contain all information available regarding this patient. Last updated 18.[facility] [employer] Allergies Active Allergy Reactions Criticality Noted Date [...] Total 143 <200 mg/dL 06/07/2022 6:33 AM [facility] HDL 49 >40 mg/dL 06/07/2022 6:33 AM [facility] Comment: ATP III Classification of HDL Cholesterol: <40 mg/dL: Considered a major risk factor. >60 mg/dL: Considered a negative risk factor. LDL Calculated 81 <100 mg/dL 06/07/2022 6:33 AM [facility] Comment: ATP III Classification of LDL Cholesterol: <100 mg/dL: Optimal 100 - 129 mg/dL: Near Optimal/Above Optimal 130 - 159 mg/dL: Borderline High 160 - 189 mg/dL: High >190 mg/dL: Very High Triglycerides 63 <150 mg/dL 06/07/2022 6:33 AM [facility] Comment: ATP III Classification of Triglycerides: <150 mg/dL: Normal 150 - 199 mg/dL: Borderline High 200 - 400 mg/dL: High >500 mg/dL: Very High Blood BLOOD SPECIMEN / Unknown Venipuncture / Unknown 06/07/2022 6:06 AM CDT 06/07/2022 6:09 AM T Kamari Adames MD LAB - CHEMISTRY KIM CABRER[facility] Organization Address City/State/ZIP Co de Phone Number [facility] [address] [place] [address], [facility] [phone] from Last 3 Months or Most Recently Relevant to Health Maintenance Advance Directives * Full Code (Latest Code Status on File) Date Activated Date Inactivated Comments 06/07/2022 5:41 AM 06/07/2022 6:41 PM Care Teams Bottle Caser Relationship Specialty Start Date End Date [facility] [address] [place] [id number] PCP - General 03/11/19
--- OUTSIDE RECORDS SUMMARY | 2024-12-15 17:09 | XMS_ITS | Clinical Summary ---
Author Organization [facility] Address [facility] [place] [address] Care Team Providers Care Mobile Home Park Manager Name Role Phone Deepa Bowden DAWIT Primary Care Provider Allergies Active Allergy Reactions Criticality Noted Date [...] exacerbation, unspecified asthma severity, unspecified whether persistent ([facility]) Inhale 1 puff into the lungs 2 (two) times daily. 60 each 5 4 Active Active Problems Problem Noted Date Diagnosed Date Acute respiratory failure ([facility]) 02/2024 Syncope 06/02/2022 Syncope and collapse 06/01/2022 [...] drink = 0.6 oz pur e alcohol) [facility] Utilities Answer Date Recorded In the past 12 months has [employer], [employer], or water [employer] threatened to shut off services in your [...] any time in the past 12 m [facility], were you homeless or living in a correction (including now)? No 05/30/2024 Education Answer Date [...] Temporary address, did not want to give [address] Advance Directives * Full Code (Latest [...] 10:08 PM 04/17/2018 8:22 PM Care Teams Mobile Home Park Manager Relationship Specialty Start Date End Date Deepa Bowden NP [address] [address] PCP - General Nurse Practitioner Family 05/14/19
--- OUTSIDE RECORDS SUMMARY | 2024-12-15 17:09 | XMS_ITS | Encounter Summary ---
Author Organization [facility] Address [address] [place] [address] Care Team Providers Care Material Reclaimer Name Role Phone Deepa Bowden NP Primary Care Provider [phone] Deepa Bowden NP Primary Care Provider [phone] Deepa Bowden SPECIAL EDUCATION RESOURCE ROOM TEACHER Unavailable [phone] Perry Monzon MD Unavailable [phone] Encounter Details Date Type Department Care Team (Late st Contact Info) Description 10/01/2023 TCC Initial Eligibility Review [facility] [address] [place] [address] Jo Rowe RN Social History Tobacco Use Types Packs/Day Years Used Date Smoking Tobacco: Former Cigarettes 0.2 15 1 974 - 1988 Smokeless Tobacco: Never [facility] Utilities Answer Date Recorded In the past 12 [address] has [employer], gas, oil, or water company threatened [...] often do you attend chur ch or temple services? Never 09/26/2023 Do you belong to any clubs o r organizations such as spiritism groups, unions, fraternal or athletic groups, or [...] slept in a intermediate (including now)? No 09/26/2023 Personal Safety Answer Date Recorded Getting School Help Needed Denies 09/15 Comments No Sex and Gender Information Value Date Recorded Sex Assigned at Not on file Legal Sex Female 1:14 AM CLINICAL RESEARCH MANAGER Gender Identity Female 12/11/2023 8:39 PM CDT Sexual Orientation Not on file documented as of this encounter Plan of Treatment Not on file documented as of this encounter Visit Diagnoses Not on filedocumented in this encounter Additional Health Concerns Infection Onset Date Last Indicated Resolved Time COVID: Suspected 11/08/2023 11/08/2023 11/08/2023 11:21 AM CLINICAL RESEARCH MANAGER COVID: Suspected 12/11/2023 12/11/2023 12/11/2023 9:22 PM CDT COVID: Suspected 12/26/2023 12/26/2023 12/26/2023 6:35 PM CDT COVID: Suspected 01/12/2024 01/12/2024 01/12/2024 11:32 PM CDT COVID: Suspected 01/19/2024 01/19/2024 01/19/2024 4:11 PM CDT COVID: Suspected 06/14/2024 06/14/2024 06/14/2024 4:07 PM CDT COVID: Suspected 06/30/2024 06/30/2024 06/30/2024 3:37 PM CDT documented as of this encounter Care Teams Material Reclaimer Relationship Specialty Start Date End Date Deepa Bowden NP PCP - General 05/07/20 12/10/23 Deepa Bowden NP PCP - General Nurse Practitioner 12/11/23 Deepa Bowden NP 12/11/23 Perry Monzon MD [address] [address] Consulting Physician Pulmonary Disease 11/12/23 documented as of this encounter
--- OUTSIDE RECORDS SUMMARY | 2024-12-15 17:09 | XMS_ITS | Encounter Summary ---
Author Organization [facility] Address [address] [place] [address] Phone Care Team Providers Care Deburrer Machine Name Role Phone Deepa Bowden NP Primary Care Provider [phone] Deepa Bowden NP Primary Care Provider [phone] Deepa Bowden MEDIA ASSOCIATE Unavailable [phone] Perry Monzon MD Unavailable [phone] Encounter Details Date Type Department Care Team [...] on file Legal Sex Female 1:14 AM HOGSHEAD OPENER Gender Identity Female 12/11/2023 8:39 PM CDT [...] COVID: Suspected 09/25/2023 09/25/2023 09/25/2023 5:29 PM HOGSHEAD OPENER COVID: Suspected 11/08/2023 11/08/2023 11/08/2023 11:21 AM HOGSHEAD OPENER COVID: Suspected 12/11/2023 12/11/2023 12/11/2023 9:22 PM CDT COVID: Suspected 12/26/2023 12/26/2023 12/26/2023 6:35 PM CDT COVID: Suspected 01/12/2024 01/12/2024 01/12/2024 11:32 PM CDT COVID: Suspected 01/19/2024 01/19/2024 01/19/2024 4:11 PM CDT COVID: Suspected 06/14/2024 06/14/2024 06/14/2024 4:07 PM CDT COVID: Suspected 06/30/2024 06/30/2024 06/30/2024 3:37 PM CDT documented as of this encounter Care Teams Deburrer Machine Relationship Specialty Start Date End Date Deepa Bowden NP PCP - General 05/07/20 12/10/23 Deepa Bowden NP PCP - General Nurse Practitioner 12/11/23 Deepa Bowden NP 12/11/23 Perry Monzon MD [address] [place] [address] [place] [address] Consulting Physician Pulmonary Disease 11/12/23 documented as of this encounter
--- OUTSIDE RECORDS SUMMARY | 2024-12-15 17:09 | XMS_ITS | Clinical Summary ---
Author Organization [facility] Address [address] [place] [address] Care Team Providers Care Sales Strategy Manager Name Role Phone Deepa Bowden NP Primary Care Provider [phone] Deepa Bowden NP Unavailable [phone] Perry Monzon MD Unavailable [phone] Allergies Active Allergy Reactions Criticality Noted Date [...] Type Department Care Team Description 11/28/2024 Telephone [facility] - [facility] ENT [address] [place] [address] [address]th [place] [address] [place] [address] Irma Wan, 11/24/2024 11:00 AM POUAKO KURA KAUPAPA MAORI Office Visit [facility] Pulmonology [address] [place] [address] [address] [place] [address] Perry Monzon MD CHARITY (obstructive sleep apnea) (Primary Dx); Cigarette nicotine dependence in remission; Non-seasonal allergic rhinitis due to fungal spores; Disorder of vocal cord; Dyspnea on exertion 11/03/2024 Telephone [facility] Pulmonology [facility] [address] [place] [address] Perry Monzon MD 10/08/2024 9:40 AM POUAKO KURA KAUPAPA MAORI Therapy [facility] Otolaryngology [address] [facility] [address]th [place] [address] [place] [address] Nicole Mccullough, DESTINY 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 Never 07/01/2024 Do you belong to any clubs o r organizations such as zoroastrianism groups, unions, fraternal or athletic groups, or [...] place to sleep or slept in a retirement (including now)? No 12/27/2023 PHQ-9 Answer Date [...] were you homeless or living in a retirement (including now)? No 07/01/2024 Personal Safety Answer Date Recorded Have you ever been in or are you currently in a harmful physical or emotional relationship or is someone making you feel afraid or unsafe? Denies 06/30/2024 Comments No Sex and Gender Information Value Date Recorded Sex Assigned at Not on file Legal Sex Female 1:14 AM POUAKO KURA KAUPAPA MAORI Gender Identity Female 12/11/2023 8:39 PM CDT [...] Comments Blood Pressure 149/80 11/24/2024 11:31 AM POUAKO KURA KAUPAPA MAORI Pulse 68 11/24/2024 11:31 AM POUAKO KURA KAUPAPA MAORI Temperature 36.7 C (98.1 F) 11/24/2024 11:31 AM POUAKO KURA KAUPAPA MAORI Respiratory Rate 18 11/24/2024 11:31 AM POUAKO KURA KAUPAPA MAORI Oxygen Saturation 96% 11/24/2024 11:31 AM POUAKO KURA KAUPAPA MAORI Inhaled Oxygen Concentration - - Weight 130.6 kg (288 lb) 11/24/2024 11:31 AM POUAKO KURA KAUPAPA MAORI Height 160 cm (5' 3) 11/24/2024 11:31 AM POUAKO KURA KAUPAPA MAORI Body Mass Index 51.02 11/24/2024 11:31 AM POUAKO KURA KAUPAPA MAORI Plan of Treatment Health Maintenance Due Date [...] ID:Not on file Type:MEDICAID RISK OTHER Address: [address] [place], [place] [id number] [place] [address] Advance Directives For more information, please contact: [phone] * Full Code (Latest Code Status on [...] 10:03 PM 09/27/2023 9:55 PM Care Teams Sales Strategy Manager Relationship Specialty Start Date End Date Deepa Bowden NP PCP - General Nurse Practitioner 12/11/23 Deepa Bowden NP 12/11/23 Perry Monzon MD [address] [facility] [place] [address] Consulting Physician Pulmonary Disease 11/12/23
--- OUTSIDE RECORDS SUMMARY | 2024-12-15 17:09 | XMS_ITS | Referral Summary ---
Author Organization [facility] Address [address] [place] [address] Care Team Providers Care Visual C Developer Name Role Phone Deepa Bowden NP Primary Care Provider [phone] Deepa Bowden NP Unavailable [phone] Perry Monzon MD Unavailable [phone] Encounters Date Type Department Care Team Description 11/28/2024 Telephone [facility] ([facility]) - [facility] ENT [address] [place] [address] [address] [place] [address] [place] [address] Irma Wan, 11/24/2024 11:00 AM RIVETER PNEUMATIC Office Visit [facility] Pulmonology [address] [place] [address] [address] [place] [phone] Perry Monzon MD CHARITY (obstructive sleep apnea) (Primary Dx); Cigarette nicotine dependence in remission; Non-seasonal allergic rhinitis due to fungal spores; Disorder of vocal cord; Dyspnea on exertion 11/03/2024 Telephone [facility] Pulmonology [address] [place] [address] [address] [place] [phone] Perry Monzon MD 10/08/2024 9:40 AM RIVETER PNEUMATIC Therapy [facility] Otolaryngology [address] [place] [address] 11th [place] [address] [place] [address] Nicole Mccullough, DESTINY 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); Hoarseness 10/08/2024 9:40 AM RIVETER PNEUMATIC Office Visit [facility] ([facility]) - [facility] ENT [address] [facility] 11th [place] [address] [place] [address] Ulysses Abreu MD Esophageal dysphagia (Primary Dx); Hoarseness; 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 Never 07/01/2024 Do you belong to [...] place to sleep or slept in a usp (including now)? No 12/27/2023 PHQ-9 Answer Date [...] any time in the past 12 m [facility], were you homeless or living in a usp (including now)? No 07/01/2024 Personal Safety Answer Date Recorded Have you ever been in or are you currently in a harmful physical or emotional relationship or is someone making you feel afraid or unsafe? Denies 06/30/2024 Comments No Sex and Gender Information Value Date Recorded Sex Assigned at Not on file Legal Sex Female 1:14 AM RIVETER PNEUMATIC Gender Identity Female 12/11/2023 8:39 PM CDT Sexual Orientation Not on file Last Filed Vital Signs Vital Sign Reading Time Taken Comments Blood Pressure 149/80 11/24/2024 11:31 AM RIVETER PNEUMATIC Pulse 68 11/24/2024 11:31 AM RIVETER PNEUMATIC Temperature 36.7 C (98.1 F) 11/24/2024 11:31 AM RIVETER PNEUMATIC Respiratory Rate 18 11/24/2024 11:31 AM RIVETER PNEUMATIC Oxygen Saturation 96% 11/24/2024 11:31 AM RIVETER PNEUMATIC Inhaled Oxygen Concentration - - Weight 130.6 kg (288 lb) 11/24/2024 11:31 AM RIVETER PNEUMATIC Height 160 cm (5' 3) 11/24/2024 11:31 AM RIVETER PNEUMATIC Body Mass Index 51.02 11/24/2024 11:31 AM RIVETER PNEUMATIC Plan of Treatment Not on file Procedures [...] Most Recently Relevant to Health Maintenance Insurance [facility] Advance Directives For more information, please contact: [phone] * Full Code (Latest Code Status on [...] 10:03 PM 09/27/2023 9:55 PM Care Teams Visual C Developer Relationship Specialty Start Date End Date Deepa Bowden NP PCP - General Nurse Practitioner 12/11/23 Deepa Bowden NP 12/11/23 Perry Monzon MD [address] [facility] [address] [address] Consulting Physician Pulmonary Disease 11/12/23
--- OUTSIDE RECORDS SUMMARY | 2024-12-15 17:09 | XMS_ITS | Encounter Summary ---
Author Organization [facility] Address [address] [place] [address] Care Team Providers Care Spiral Runner Name Role Phone PatiDeepa ruelas DAWIT Primary Care Provider [phone] Encounter Details Date Type Department Care Team (Late st Contact Info) Description 03/05/2020 Hospital Follow-up Call [facility] [place] [address] Rosalva Lopez RN Social History Tobacco Use [...] documented as of this encounter Care Teams Spiral Runner Relationship Specialty Start Date End Date Deepa Bowden NP [address] [place] [phone] PCP - General Nurse Practitioner Family 05/14/19 documented as of this encounter
[2024-12-15] MEDS: CYCLOBENZAPRINE HCL 10 MG TABLET PO (18:14)
[2024-12-15] MEDS: HYDROcodone/acetaminophen (*CRX) 5-325 MG TABLET 1 TAB PO (18:14)
[2024-12-15] MEDS: IBUPROFEN 600 MG TABLET PO (18:15)
--- OUTSIDE RECORDS SUMMARY | 2024-12-15 18:15 | XMS_ITS | Encounter Summary ---
Author Organization [facility] Address [address] [place] [address] Care Team Providers Care Client Technical Professional Name Role Phone PatiDeepa ruelas DAWIT Primary Care Provider [phone] Encounter Details Date Type Department Care Team (Late st Contact Info) Description 03/05/2020 Hospital Follow-up Call [facility] [place] [address] Rosalva Lopez RN Social History Tobacco Use [...] documented as of this encounter Care Teams Client Technical Professional Relationship Specialty Start Date End Date Deepa Bowden NP [address] [place] [phone] PCP - General Nurse Practitioner Family 05/14/19 documented as of this encounter
--- OUTSIDE RECORDS SUMMARY | 2024-12-15 18:15 | XMS_ITS | Encounter Summary ---
Author Organization [facility] Address [address] [place] [address] Phone Care Team Providers Care Supervisor Farm Equipment Maintenance Name Role Phone Deepa Bowden NP Primary Care Provider Deepa Bowden NP Primary Care Provider [phone] Deepa Bowden OUTSIDE SALES ASSOCIATE Unavailable [phone] Perry Monzon MD Unavailable [phone] Encounter Details Date Type Department Care Team [...] on file Legal Sex Female 1:14 AM CHEMIST INSTRUMENTATION Gender Identity Female 12/11/2023 8:39 PM CDT [...] COVID: Suspected 09/25/2023 09/25/2023 09/25/2023 5:29 PM CHEMIST INSTRUMENTATION COVID: Suspected 11/08/2023 11/08/2023 11/08/2023 11:21 AM CHEMIST INSTRUMENTATION COVID: Suspected 12/11/2023 12/11/2023 12/11/2023 9:22 PM CDT COVID: Suspected 12/26/2023 12/26/2023 12/26/2023 6:35 PM CDT COVID: Suspected 01/12/2024 01/12/2024 01/12/2024 11:32 PM CDT COVID: Suspected 01/19/2024 01/19/2024 01/19/2024 4:11 PM CDT COVID: Suspected 06/14/2024 06/14/2024 06/14/2024 4:07 PM CDT COVID: Suspected 06/30/2024 06/30/2024 06/30/2024 3:37 PM CDT documented as of this encounter Care Teams Supervisor Farm Equipment Maintenance Relationship Specialty Start Date End Date Deepa Bowden NP PCP - General 05/07/20 12/10/23 Deepa Bowden NP PCP - General Nurse Practitioner 12/11/23 Deepa Bowden NP 12/11/23 Perry Monzon MD [address] [facility] [address] [place] [address] [place] [address] Consulting Physician Pulmonary Disease 11/12/23 documented as of this encounter
--- OUTSIDE RECORDS SUMMARY | 2024-12-15 18:15 | XMS_ITS | Encounter Summary ---
Author Organization [facility] Address [address] [place] [address] Care Team Providers Care Reconcilement Clerk Name Role Phone PatiDeepa ruelas DAWIT Primary Care Provider [phone] Encounter Details Date Type Department Care Team (Late st Contact Info) Description 03/03/2020 Hospital Follow-up Call [facility] [place] [address] Rosalva Lopez RN Social History Tobacco Use [...] documented as of this encounter Care Teams Reconcilement Clerk Relationship Specialty Start Date End Date Deepa Bowden NP [address] [place] [phone] PCP - General Nurse Practitioner Family 05/14/19 documented as of this encounter
--- OUTSIDE RECORDS SUMMARY | 2024-12-15 18:15 | XMS_ITS | Clinical Summary ---
Author Organization [facility] Address formerly [facility] [place] [address] Care Team Providers Care Fire Engine Pump Operator Name Role Phone Deepa Bowden DAWIT Primary Care Provider [phone] Allergies Active Allergy Reactions Criticality Noted Date [...] exacerbation, unspecified asthma severity, unspecified whether persistent ([facility]) Inhale 1 puff into the lungs 2 (two) times daily. 60 each 5 4 Active Active Problems Problem Noted Date Diagnosed Date Acute respiratory failure ([facility]) 02/2024 Syncope 06/02/2022 Syncope and collapse 06/01/2022 [...] drink = 0.6 oz pur e alcohol) [facility] Utilities Answer Date Recorded In the past 12 months has [employer], [employer], or water [employer] threatened to shut off services in your [...] any time in the past 12 m [facility], were you homeless or living in a custodial (including now)? No 05/30/2024 Education Answer Date [...] Temporary address, did not want to give [address] Advance Directives * Full Code (Latest [...] 10:08 PM 04/17/2018 8:22 PM Care Teams Fire Engine Pump Operator Relationship Specialty Start Date End Date Deepa Bowden NP [address] [address] PCP - General Nurse Practitioner Family 05/14/19
--- OUTSIDE RECORDS SUMMARY | 2024-12-15 18:15 | XMS_ITS | Clinical Summary ---
Author Organization [facility] Address [address] [place] [address] Care Team Providers Care Copier Operator Name Role Phone Deepa Bowden NP Primary Care Provider [phone] Deepa Bowden NP Unavailable [phone] Perry Monzon MD Unavailable [phone] Allergies Active Allergy Reactions Criticality Noted Date [...] Type Department Care Team Description 11/28/2024 Telephone [facility] ([facility]) - [facility] ENT [address] [place] [address] [address]th [place] [address] [place] [address] Irma Wan, 11/24/2024 11:00 AM FUR REPAIRER Office Visit [facility] Pulmonology [address] [place] [address] [address] [place] [address] Perry Monzon MD CHARITY (obstructive sleep apnea) (Primary Dx); Cigarette nicotine dependence in remission; Non-seasonal allergic rhinitis due to fungal spores; Disorder of vocal cord; Dyspnea on exertion 11/03/2024 Telephone [facility] [address] [place] [address] Perry Monzon MD 10/08/2024 9:40 AM FUR REPAIRER Therapy [facility] Otolaryngology [address] [facility] 11th [place] [address] [place] [address] Nicole Mccullough, DESTINY 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); Hoarseness 10/08/2024 9:40 AM FUR REPAIRER Office Visit [facility]) - [facility] ENT [address] [facility] 11th [place] [address] [place] [address] Ulysses Abreu MD Esophageal dysphagia (Primary Dx); Hoarseness; 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 Never 07/01/2024 Do you belong to [...] place to sleep or slept in a residential (including now)? No 12/27/2023 PHQ-9 Answer Date [...] any time in the past 12 m [facility], were you homeless or living in a residential (including now)? No 07/01/2024 Personal Safety Answer Date Recorded Have you ever been in or are you currently in a harmful physical or emotional relationship or is someone making you feel afraid or unsafe? Denies 06/30/2024 Comments No Sex and Gender Information Value Date Recorded Sex Assigned at Not on file Legal Sex Female 1:14 AM FUR REPAIRER Gender Identity Female 12/11/2023 8:39 PM CDT [...] Comments Blood Pressure 149/80 11/24/2024 11:31 AM FUR REPAIRER Pulse 68 11/24/2024 11:31 AM FUR REPAIRER Temperature 36.7 C (98.1 F) 11/24/2024 11:31 AM FUR REPAIRER Respiratory Rate 18 11/24/2024 11:31 AM FUR REPAIRER Oxygen Saturation 96% 11/24/2024 11:31 AM FUR REPAIRER Inhaled Oxygen Concentration - - Weight 130.6 kg (288 lb) 11/24/2024 11:31 AM FUR REPAIRER Height 160 cm (5' 3) 11/24/2024 11:31 AM FUR REPAIRER Body Mass Index 51.02 11/24/2024 11:31 AM FUR REPAIRER Plan of Treatment Health Maintenance Due Date [...] ID:Not on file Type:MEDICAID RISK OTHER Address: [address] [place], [place] [id number] [place] [address] Advance Directives For more information, please contact: [phone] * Full Code (Latest Code Status on [...] 10:03 PM 09/27/2023 9:55 PM Care Teams Copier Operator Relationship Specialty Start Date End Date Deepa Bowden NP PCP - General Nurse Practitioner 12/11/23 Deepa Bowden NP 12/11/23 Perry Monzon MD [address] [facility] [place] [address] Consulting Physician Pulmonary Disease 11/12/23
--- OUTSIDE RECORDS SUMMARY | 2024-12-15 18:15 | XMS_ITS | Clinical Summary ---
Author Organization [facility] Address [address] [facility] [place] [address] Care Team Providers Care Identification Technician Name Role Phone [facility] Primary Care Provider Source Comments [facility],non-[facility] health care Affiliates and Associated Physician Practices is amultiple site organization consisting of ambulatory clinics and hospital sitesin [place], [place], [place] and [place]. This disclosure is being madepursuant to the Care Everywhere program and may not contain all information available regarding this patient. Last updated 18.[facility] [employer] Allergies Active Allergy Reactions Criticality Noted Date [...] Adames MD LAB - CHEMISTRY KIM CABRERA [facility] Organization Address City/State/ZIP Co de Phone Number [facility] [address] [place] [address], [facility] [phone] from Last 3 Months or Most Recently Relevant to Health Maintenance Advance Directives * Full Code (Latest Code Status on File) Date Activated Date Inactivated Comments 06/07/2022 5:41 AM 06/07/2022 6:41 PM Care Teams Identification Technician Relationship Specialty Start Date End Date [facility] [address] [place] [address] PCP - General 03/11/19
--- OUTSIDE RECORDS SUMMARY | 2024-12-15 18:15 | XMS_ITS | CONTINUITY OF CARE DOCUMENT ---
Author Name ankita luciano Address Unknown Organization [facility] Address [address] [facility] [address] [place] [address] Phone [phone] Care Team Providers Care Metal Casket Assembler Name Role Phone Donato Doherty MD Unavailable [phone] Donato Doherty MD Unavailable [phone] INSURANCE [employer]ERS Payer name Policy type / Coverage type [place] red democrat ID [facility] MEDICAID (2) Medicaid [id number]
--- OUTSIDE RECORDS SUMMARY | 2024-12-15 18:15 | XMS_ITS | Referral Summary ---
Author Organization [facility] Address [address] [place] [address] Care Team Providers Care Loom Fixer Supervisor Name Role Phone Deepa Bowden NP Primary Care Provider [phone] Deepa Bowden NP Unavailable [phone] Perry Monzon MD Unavailable [phone] Encounters Date Type Department Care Team Description 11/28/2024 Telephone [facility] ([facility]) - [facility] ENT [address] [place] [address] [address]th [place] [address] Irma Wan, 11/24/2024 11:00 AM RECYCLING CENTER OPERATOR Office Visit [facility] Pulmonology [address] [place] [address] [address] [place] [address] Perry Monzon MD CHARITY (obstructive sleep apnea) (Primary Dx); Cigarette nicotine dependence in remission; Non-seasonal allergic rhinitis due to fungal spores; Disorder of vocal cord; Dyspnea on exertion 11/03/2024 Telephone [facility] Pulmonology [address] [place] [address] [address] [place] [phone] Perry Monzon MD 10/08/2024 9:40 AM RECYCLING CENTER OPERATOR Therapy [facility] Otolaryngology [address] [place] [address] [address]th [place] [address] Nicole Mccullough, DESTINY 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 Never 07/01/2024 Do you belong to any clubs o r organizations such as mormonism groups, unions, fraternal or athletic groups, or [...] time in the past 12 m [facility], were you homeless or living [...] on file Legal Sex Female 1:14 AM RECYCLING CENTER OPERATOR Gender Identity Female 12/11/2023 8:39 PM CDT Sexual Orientation Not on file Last Filed Vital Signs Vital Sign Reading Time Taken Comments Blood Pressure 149/80 11/24/2024 11:31 AM RECYCLING CENTER OPERATOR Pulse 68 11/24/2024 11:31 AM RECYCLING CENTER OPERATOR Temperature 36.7 C (98.1 F) 11/24/2024 11:31 AM RECYCLING CENTER OPERATOR Respiratory Rate 18 11/24/2024 11:31 AM RECYCLING CENTER OPERATOR Oxygen Saturation 96% 11/24/2024 11:31 AM RECYCLING CENTER OPERATOR Inhaled Oxygen Concentration - - Weight 130.6 kg (288 lb) 11/24/2024 11:31 AM RECYCLING CENTER OPERATOR Height 160 cm (5' 3) 11/24/2024 11:31 AM RECYCLING CENTER OPERATOR Body Mass Index 51.02 11/24/2024 11:31 AM RECYCLING CENTER OPERATOR Plan of Treatment Not on file Procedures [...] Most Recently Relevant to Health Maintenance Insurance [facility] Advance Directives For more information, please contact: [phone] * Full Code (Latest Code Status on [...] 10:03 PM 09/27/2023 9:55 PM Care Teams Loom Fixer Supervisor Relationship Specialty Start Date End Date Deepa Bowden NP PCP - General Nurse Practitioner 12/11/23 Deepa Bowden NP 12/11/23 Perry Monzon MD [address] [facility] [address] [address] Consulting Physician Pulmonary Disease 11/12/23
--- OUTSIDE RECORDS SUMMARY | 2024-12-15 18:15 | XMS_ITS | Encounter Summary ---
Author Organization [facility] Address [address] [place] [address] Care Team Providers Care Home Health Lvn Name Role Phone Deepa Bowden NP Primary Care Provider [phone] Deepa Bowden NP Primary Care Provider [phone] Deepa Bowden BREAK UP WORKER Unavailable [phone] Perry Monzon MD Unavailable [phone] Encounter Details Date Type Department Care Team (Late st Contact Info) Description 10/01/2023 TCC Initial Eligibility Review [facility] [address] [place] [address] Jo Rowe RN Social History Tobacco Use Types Packs/Day Years Used Date Smoking Tobacco: Former Cigarettes 0.2 15 1 974 - 1988 Smokeless Tobacco: Never [facility] Utilities Answer Date Recorded In the past 12 months has [employer], gas, oil, or water company threatened [...] often do you attend chur ch or yazidi services? Never 09/26/2023 Do you belong to any clubs o r organizations such as jewish groups, unions, fraternal or athletic groups, or [...] place to sleep or slept in a penitentiary (including now)? No 09/26/2023 Personal Safety Answer Date Recorded Getting School Help Needed Denies 09/15 Comments No Sex and Gender Information Value Date Recorded Sex Assigned at Not on file Legal Sex Female 1:14 AM HIMS CODER Gender Identity Female 12/11/2023 8:39 PM CDT Sexual Orientation Not on file documented as of this encounter Plan of Treatment Not on file documented as of this encounter Visit Diagnoses Not on filedocumented in this encounter Additional Health Concerns Infection Onset Date Last Indicated Resolved Time COVID: Suspected 11/08/2023 11/08/2023 11/08/2023 11:21 AM HIMS CODER COVID: Suspected 12/11/2023 12/11/2023 12/11/2023 9:22 PM CDT COVID: Suspected 12/26/2023 12/26/2023 12/26/2023 6:35 PM CDT COVID: Suspected 01/12/2024 01/12/2024 01/12/2024 11:32 PM CDT COVID: Suspected 01/19/2024 01/19/2024 01/19/2024 4:11 PM CDT COVID: Suspected 06/14/2024 06/14/2024 06/14/2024 4:07 PM CDT COVID: Suspected 06/30/2024 06/30/2024 06/30/2024 3:37 PM CDT documented as of this encounter Care Teams Home Health Lvn Relationship Specialty Start Date End Date Deepa Bowden NP PCP - General 05/07/20 12/10/23 Deepa Bowden NP PCP - General Nurse Practitioner 12/11/23 Deepa Bowden NP 12/11/23 Perry Monzon MD [address] [facility] [place] [address] Consulting Physician Pulmonary Disease 11/12/23 documented as of this encounter
[2024-12-15 18:30] VITALS: BP 145/77; PULSE 80; RESP 16; TEMP 36.6; O2SAT 99
== END 2024-12-15 18:30 | disposition home or self-care (01) ==
PROVIDERS: Emergency Provider Emergency Medicine; PCP Nurse Practitioner Family
DX: S16.1XXA Strain of muscle, fascia and tendon at neck level, initial encounter (principal); X58.XXXA Exposure to other specified factors, initial encounter
CPT/HCPCS: 99283; A9270